=== PATIENT | female | born 1955 | race Caucasian/White ===

== ENCOUNTER → 2017-02-22 | Outpatient (CLI) | payer BC ==
--- NOTE | 2017-02-25 16:44 | MRI ---
MRI left knee without contrast Indication: Left knee pain, no known injury Comparison: None Technique: Multiplanar, multisequence MR images of the left knee were obtained without contrast. Findings: There is advanced medial compartment DJD with high-grade chondrosis and subchondral edema and cystic change of the central articular surfaces of the femoral condyle and tibial plateau with a ssociated marginal osteophytosis. There is diffuse degenerative maceration and extrusion of the medi al meniscus. There is a large complex multilocular cystic structure along the anterior medial aspect of the knee joint measuring 7.0 x 2.4 cm maximum axial dimension and 8.2 cm in craniocaudal dimensi on containing multiple septations and cystic debris this collection appears to be intra-articular, s ubjacent to the MCL. There are mild degenerative changes of the lateral femorotibial and patellofemoral compartments with associated marginal osteophytosis and mild chondrosis, without full-thickness chondral defect or si gnificant subchondral signal abnormality. No lateral meniscal tear identified. The ACL is not definitely identified. There is attenuation of the mid to distal MCL by the cystic co llection, although the MCL otherwise appears grossly intact. The PCL, major lateral stabilizers, and extensor mechanism are intact. There is no significant joint effusion or popliteal cyst. There is n onspecific anterior knee subcutaneous edema, without discrete collection. Impression: 1. 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 There is a complex multilocular cystic collection along the anteromedial knee, most suggestive for a larg e parameniscal cyst. 2. Mild degenerative changes of the lateral femorotibial and patellofemoral compartments. 3. Probably chronically torn ACL Reported By:
== END ==
LOC: MERGE 13:03 → RAD 13:03
PROVIDERS: ATTEND Internal Medicine
DX: M25.562 Pain in left knee (principal); M17.12 Unilateral primary osteoarthritis, left knee
CPT/HCPCS: 73721

== ENCOUNTER → 2017-06-18 | Outpatient (CLI) | payer BC ==
[~2017-06-18] MED LIST: NS 100 ML IV 100 ML IV ONE
[2017-06-18 12:06] LABS: CREATININE 0.86 mg/dL (0.55-1.02)
--- NOTE | 2017-06-19 16:59 | CT ---
HISTORY: Abnormal chest x-ray, shortness of breath. Study: CT chest with contrast Comparison: None available. Technique: Multiple axial images of the chest were obtained from the thoracic inlet to the upper abdo men after the administration of IV contrast. MIP images were obtained. Dose reduction techniques incl uding Automated Exposure Control (AEC) and adjustment of mA and kV were utilized. Findings: The mediastinum does not demonstrate significant pathological lymphadenopathy. There is no paracardi al effusion observed. The thoracic aorta is normal in its contour without evidence for aneurysmal di latation. Calcified mediastinal lymph nodes consistent with old granulomatous disease. The central p ulmonary arterial system does not demonstrate central filling defects to suggest pulmonary emboli. No obvious pulmonary nodule, mass, focal consolidation, pleural effusion, or pneumothorax. Diffuse fa tty infiltration of the visualized liver. The gallbladder is surgically absent. Punctate calcificatio ns within the spleen consistent with remote granulomatous disease. Small hiatal hernia. Remaining upp er abdominal structures are intact. Degenerative changes of the spine. IMPRESSION: 1. No CT evidence of acute pulmonary embolus. 2. Other chronic findings as above. Reported By:
== END ==
LOC: RAD 11:21
PROVIDERS: ATTEND Internal Medicine
DX: F17.200 Nicotine dependence, unspecified, uncomplicated (principal); R91.8 Other nonspecific abnormal finding of lung field; K44.9 Diaphragmatic hernia without obstruction or gangrene
CPT/HCPCS: 36415; 71260; 82565; 84520; A4222